=== PATIENT | male | born 1975 | race Caucasian/White ===

== ENCOUNTER 2020-10-16 12:25 | Emergency (ER) | payer OTHER, SELFPAY ==
--- NOTE | ~2020-10-16 | XR_ITS ---
EXAMINATION: XR soft tissue neck DATE: 10/16/2020 13:03 INDICATION: Foreign body. TECHNIQUE: 2 views of the neck soft tissues were obtained. COMPARISON: Cervical spine radiographs 05/27/2013 FINDINGS: The adenoids, palatine tonsils, prevertebral soft tissues, epiglottis, and airway are chadwick l. IMPRESSION: 1. No radiopaque foreign body. Reviewed, dictated and finalized at location A.
--- NOTE | ~2020-10-16 | XR_ITS ---
EXAMINATION: XR chest 2V DATE: 10/16/2020 13:03 INDICATION: Foreign body. TECHNIQUE: Frontal and lateral views of the chest were obtained. COMPARISON: Chest 2 views 01/09/2015 FINDINGS: The chest demonstrates clear lungs without pneumonia, pleural effusion, or pneumothorax. Th e heart size is normal. There is mild chronic anterior wedging of multiple thoracic vertebral bodies. IMPRESSION: 1. No acute cardiopulmonary disease. No radiopaque foreign body. Reviewed, dictated and finalized at location A.
[2020-10-16 12:37] VITALS: BP 134/82; PULSE 82; RESP 20; TEMP 37.1; O2SAT 99
--- NOTE | 2020-10-16 12:39 | ED.GENADULT ---
HPI - General Adult General Chief complaint: Unspecified Stated complaint: difficulty swallowing Time Seen by Provider: 10/16/20 12:40 Source: patient and RN notes reviewed Mode of arrival: ambulatory Limitations: no limitations History of Present Illness HPI narrative: 45-year-old male presents with complaints of hiccups, pain with swallowing, and feeling as if food is stuck in the throat and upper chest area for the past 15.5 hours. ?Josep reports he last ate an [place] muffin and eggs at approximately 18:30, in which hiccups started at approximately 20:30. Reports fasting for the past 2 weeks from [id number]. No treatment. ?Denies history of GERD or ulcers. ?Denies laying down after eating or eating spicy foods often. ?Sore throat on 10/15/20, pain bilateral. No high fevers, drooling, neck or throat swelling. Exacerbation factors consist of eating and drinking. Denies URI symptoms. ?No voice change. ?Forced himself to vomit once, no nausea, vomiting, or abdominal pain. Tolerating liquids well. Denies chest pain and dyspnea. Denies jaw pain, dental pain, facial pain, and rash. Remains active. The patient reports he has not been diagnosed with COVID-19. ?The patient reports he received 2 Pfizer COVID-19 vaccines. The patient reports he is not waiting for the results of a COVID-19 lab test. ?The patient reports she does not have weakness, fatigue, or myalgia. ?The patient reports he does not have a new or worsening cough. The patient reports he does not have any rhinorrhea, congestion, loss of taste, and diarrhea. ?Denies recent traveling. ?Denies concerns for COVID-19 or exposures. ?At this time, the patient is not suspected of having COVID-19. Some parts of this dictation were generated by voice recognition software and may contain typographical and/or grammatical inaccuracies. Related Data Allergies Allergy/AdvReac Type Severity Reaction Status Date / Time Sulfa (Sulfonamide Allergy Mild Rash Verified 10/16/20 12:30 Antibiotics) Review of Systems Review of Systems: Narrative: CONSTITUTIONAL: Denies fever, chills, sweats. EYES: Denies visual changes, redness, discharge. ENT: Denies rhinorrhea, congestion, otalgia. Complaints of sore throat, hiccups, pain with swallowing, and feeling as if food is stuck in the throat and upper chest . CARDIOVASCULAR: Denies chest pain, palpitations, edema. RESPIRATORY: Denies dyspnea, wheezing, cough. GASTROINTESTINAL: Denies abdominal pain, nausea, vomiting, diarrhea. SKIN: Denies rash or itching. MUSCULOSKELETAL: Denies acute back pain, joint pain, or myalgia. NEUROLOGIC: Denies numbness or focal weakness. PSYCHIATRIC: Denies anxiety or depression. All systems reviewed & are unremarkable except as noted in HPI and below. [facility] Past Medical History Medical History (Updated 10/17/20 @ 00:01 by Daisy Damico) Knee pain LT Surgical History Surgical History (Updated 10/16/20 @ 13:02 by GRAHAM Marroquin) History of arthroscopic knee surgery LT Family History Family History (Updated 10/16/20 @ 13:03 by GRAHAM Marroquin) Father , suicide Depression Mother Heart disease Social History Social History (Updated 10/16/20 @ 13:04 by GRAHAM Marroquin) Smoking status: Never smoker Tobacco type: cigarettes Second hand tobacco smoke exposure: No Alcohol intake: never Substance use: never Substance use type: does not use Living arrangements: with family Occupation/Education: other Additional occupation/education comments: disable Gender identity (if verbalized by the patient): Male Sexual Orientation (if Verbalized by the Patient): Straight or Heterosexual Comments At time of signature, agree with the nurse past medical, surgical, social, and family history. There is no relevant family history pertinent to the presenting complaint. Exam Narrative: Exam Narrative: GENERAL: This is a well-nourished, well-develope
[2020-10-16 12:41] VITALS: BP 134/82; PULSE 82; RESP 20; TEMP 37.1; O2SAT 99
== END 2020-10-16 13:30 | disposition home or self-care (01) ==
PROVIDERS: Emergency Provider Nurse Practitioner Family
DX: R13.10 Dysphagia, unspecified (principal)
CPT/HCPCS: 70360; 71046; 99213; G0463

== ENCOUNTER 2023-12-21 07:13 | Emergency (ER) | payer OTHER, SELFPAY ==
[2023-12-21 07:14] VITALS: BP 134/81; PULSE 64; RESP 14; TEMP 36.7; O2SAT 100
[2023-12-21 07:43] LABS: Alanine Aminotransferase 23 U/L (6-50); Albumin Level 4.6 g/dL (3.5-5.1); Alkaline Phosphatase 52 U/L (38-126); Anion Gap 10 mmol/L (4-12); Aspartate Amino Transferase 30 U/L (17-59); Bilirubin,Total 0.8 mg/dL (0.2-1.3); Blood Urea Nitrogen 10 mg/dL (9-20); Calcium 9.4 mg/dL (8.4-10.2); Carbon Dioxide 28 mmol/L (22-30); Chloride 101 mmol/L (98-107); Estimated Glomerular Filt Rate > 60; Glucose 106 mg/dL (65-110); Potassium 3.5 mmol/L (3.4-5.0); Sodium 139 mmol/L (137-145)
[2023-12-21 07:56] LABS: Basophils Absolute Auto 0.1 K/mm3 (0.0-0.1); Basophils Percent Auto 1.2 % (0.2-1.2); Eosinophils Absolute Auto 0.1 K/mm3 (0-0.3); Eosinophils Percent Auto 1.4 % (0-4.4); Hematocrit 43.6 % (42.0-52.0); Hemoglobin 15.1 g/dL (14.0-18.0); Immature Granulocyte Absolute 0.01 K/mm3 (0.00-0.031); Immature Granulocyte Percent A 0.2 % (0-0.5); Lymphocytes Absolute Auto 1.52 K/mm3 (0.9-3.2); Lymphocytes Percent Auto 30.9 % (18.3-44.2); Mean Corpuscular HGB Conc 34.6 g/dl (32-36); Mean Corpuscular Hemoglobin 32.2 pg (26-34); Mean Platelet Volume 10.3 fl (7.4-10.4); Monocytes Absolute Auto 0.5 K/mm3 (0.1-0.6); Monocytes Percent Auto 9.6 % (2.6-8.5); Neutrophils Absolute Auto 2.8 K/mm3 (1.3-6.7); Neutrophils Percent Auto 56.7 % (45.5-73.1); Platelet Count Result 247 k/mm3 (150-375); Red Blood Count 4.69 M/mm3 (4.6-6.20); Red Cell Distribution Width 12.9 % (11.5-14.5); White Blood Count 4.9 K/mm3 (4.5-10.0)
--- NOTE | 2023-12-21 07:59 | ED.PSYCH ---
HPI - Psych General Chief Complaint: Psychiatric Symptoms Stated Complaint: AMS Time Seen by Provider: 12/21/23 07:42 Source: patient and EMS Mode of arrival: EMS History of Present Illness HPI Narrative: Patient presents after being found in the [facility] by the police department. Patient was requesting psych evaluation and brought to the emergency department. He denies any suicidal ideation or homicidal ideation. In triage he notes that he had 2 kids and a and was terrible to them. Patient's only complaint is some intermittent right upper quadrant pain. He says occasionally he feels nauseated but has not been vomiting and denies any fevers. States he still has his gallbladder. Says it history of a bleeding ulcer in the past year so that resolved spontaneously and did not require surgical intervention. Unknown amount of alcohol he drinks per week. He states he thought he poor the last of his alcohol out a few days ago. He sees a psych doctor through the [facility] who prescribes him olanzepine. He denies needing any as he states he has a full bottle. Denies any trauma. Related Data Allergies Allergy/AdvReac Type Severity Reaction Status Date / Time Sulfa (Sulfonamide Allergy Mild Rash Verified 10/16/20 12:30 Antibiotics) PMFSH Past Medical History Medical History Knee pain LT Surgical History Surgical History History of arthroscopic knee surgery LT Family History Family History (Updated 10/16/20 @ 13:03 by GRAHAM Marroquin) Father , suicide Depression Mother Heart disease Social History Social History Smoking status: Never smoker Tobacco type: cigarettes Second hand tobacco smoke exposure: No Alcohol intake: never Substance use: never Substance use type: unknown Living arrangements: with family Occupation/Education: other Additional occupation/education comments: disabled; previous ([employer]?) Gender identity (if verbalized by the patient): Male Sexual Orientation (if Verbalized by the Patient): Straight or Heterosexual Exam Narrative: GENERAL: Well-appearing, well-nourished, and in no acute distress. HEAD: Normocephalic, atraumatic. No signs of trauma. EYES: Non injected, non icteric ENT: Nares clear, no rhinorrhea or epistaxis. NECK: Supple. CHEST: Speaking in full sentences. No respiratory distress. HEART: Regular rate and rhythm. . ABDOMEN: Soft, nondistended. Nontender to palpation throughout without rigidity or guarding. Not peritoneal. Longoria sign positive. EXTREMITIES: Normal range of motion. No lower extremity edema. SKIN: Warm, dry, no rash. NEURO: No focal deficits. Alert and oriented to person and place (knows he is in [place] in hospital). PSYCH: Normal mood and affect. Denies suicidal ideation or homicidal ideation. Appropriate eye contact. Calm. Apologetic. Course Vital Signs Vital signs: Vital Signs Temperature 98.0 F 12/21/23 07:14 Pulse Rate 64 12/21/23 07:14 Respiratory Rate 14 12/21/23 07:14 Blood Pressure 134/81 12/21/23 07:14 Pulse Oximetry 100 12/21/23 07:14 Oxygen Delivery Room Air 12/21/23 07:14 Temperature 98.6 F 12/21/23 12:10 Pulse Rate 86 12/21/23 12:10 Respiratory Rate 14 12/21/23 07:14 Blood Pressure 129/84 12/21/23 12:10 Pulse Oximetry 100 12/21/23 12:10 Oxygen Delivery Room Air 12/21/23 07:14 MDM - Psych MDM Narrative Medical decision making narrative: Patient presents after being found in the [facility] by police. Patient had requested to have a psych evaluation. States he has a history of a psych condition for which he is prescribed olanzapine. In the emergency department they are afebrile with vital signs within normal limits. Patient does have positive Longoria si
[2023-12-21 08:08] LABS: Bacteria Urine None Seen /hpf; Non Pathogenic Casts 0-2; RBC Urine 0-2 /hpf (0-2); Squamous Epithelial Cell Urine None Seen /hpf (Few); WBC Urine 0-5 /hpf (0-3)
[2023-12-21 08:13] LABS: Appearance Urine Clear (Clear); Blood Urine Trace-intact (Negative); Color Urine Yellow (Yellow); Glucose Urine UA Negative (Negative); Ketones Urine 1+ mg/dL (Negative); Nitrate Urine Negative (Negative); Protein Urine Negative (Negative); pH Urine 6.5 (5.0-9.0)
[2023-12-21 08:14] LABS: Add Urine Microscopic? YES; Bilirubin Urine Negative (Negative); Leukocyte Esterase Ur 1+ LEU/UL (Negative); Urobilinogen Urine 0.2 mg/dL (<2.0)
[2023-12-21 08:16] LABS: Influenza A QL RT-PCR Negative (Negative); Influenza B QL RT-PCR Negative (Negative); SARS-CoV-2 RNA PCR Negative (Negative)
[2023-12-21] MEDS: ONDANSETRON HCL ODT 4 MG TABLET PO (08:17)
[2023-12-21 08:39] LABS: Thyroid Stimulating Hormone Reflex 0.771 uIU/mL (0.465-4.68)
[2023-12-21 09:25] LABS: Lipase 105 U/L (23-300)
[2023-12-21 09:30] LABS: Ethanol < 10 mg/dL (<10)
[2023-12-21 09:47] LABS: Amphetamine Screen Urine Negative (Negative); Barbiturate Screen Urine Negative (Negative); Benzodiazepines Screen Urine Negative (Negative); Cannabinoid Screen Urine Positive (Negative); Cocaine Screen Urine Negative (Negative); Methadone Screen Urine Negative (Negative); Opiate Screen Urine Negative (Negative); Phencyclidine Screen Urine Negative (Negative)
[2023-12-21 12:10] VITALS: BP 129/84; PULSE 86; TEMP 37; O2SAT 100
== END 2023-12-21 13:15 | disposition home or self-care (01) ==
PROVIDERS: Emergency Provider Student in an Organized Health Care Education/Training Program
DX: R10.11 Right upper quadrant pain (principal); F12.90 Cannabis use, unspecified, uncomplicated; Z20.822 Contact with and (suspected) exposure to COVID-19
CPT/HCPCS: 36415; 80053; 80307; 81001; 83690; 84443; 85025; 87086; 87636; 99284; A9270